=== PATIENT | female | born 2000 | race Hispanic/Latino ===

== ENCOUNTER 2021-08-11 06:51 | Emergency (ER) | payer MEDICAID ==
[2021-08-11] MEDS ORDERED: diphenhydrAMINE 25 MG CAP ONE (07:14)
[2021-08-11] MEDS ORDERED: predniSONE 20 MG TAB ONE (07:15)
[2021-08-11] MEDS ORDERED: Famotidine 20 MG TAB ONE (07:16)
== END 2021-08-11 08:57 | disposition home or self-care (01) ==
LOC: CSHERS 06:51
DX: L50.0 Allergic urticaria (principal)
CPT/HCPCS: 99282; J7512

== ENCOUNTER 2021-08-13 03:05 | Emergency (ER) | payer MEDICAID ==
[2021-08-13] MEDS ORDERED: EPINEPHrine 1 MG/ML AMP ONE ×2 (03:43→05:50)
[2021-08-13] MEDS ORDERED: methylPREDNISolone Sod Succ/PF 125 MG/2 ML VIAL ONE (05:49)
[2021-08-13] MEDS ORDERED: Famotidine/PF 20 mg/2ml Vial ONE (05:50)
[2021-08-13] MEDS ORDERED: diphenhydrAMINE 50 MG/ML VIAL ONE (05:51)
== END 2021-08-13 06:52 | disposition home or self-care (01) ==
LOC: CSHERS 03:05
DX: T78.2XXA Anaphylactic shock, unspecified, initial encounter (principal); L50.0 Allergic urticaria
CPT/HCPCS: 96372; 96374; 96375; J0171; J1200; J2930; S0028